=== PATIENT | female | born 1975 | race Two or more races ===

== ENCOUNTER 2024-08-11 16:05 | Emergency (ER) | payer OTHER ==
[~2024-08-11] VITALS: Ht 149.9 cm; Wt 59.0 kg
[2024-08-11] MEDS ORDERED: LOSARTAN POTAS100 MG PO (16:48)
[2024-08-11] MEDS ORDERED: ONDANSETRON HCL 2 MG/ML VIAL IV ONE (17:15)
[2024-08-11] MEDS ORDERED: DIPHENHYDRAMINE HCL 50 MG/ML VIAL 1ML IV ONE (17:15)
[2024-08-11] MEDS ORDERED: METHYLPREDNISOLONE SOD SUCC 40 MG VIAL IV ONE (17:15)
[2024-08-11] MEDS ORDERED: 0.9 % SODIUM CHLORIDE 1,000 ML IV ONE (17:15)
[2024-08-11] MEDS ORDERED: FAMOtidine 10 MG/ML (4ML VIAL) IV ONE (17:15)
[2024-08-11] MEDS ORDERED: DIPHENHYDRAMINE HCL 50 MG/ML VIAL 1ML ONE (17:18)
[2024-08-11] MEDS ORDERED: FAMOTIDINE/PF 20 MG/2 ML VIAL ONE (17:19)
[2024-08-11] MEDS ORDERED: ONDANSETRON HCL 2 MG/ML VIAL ONE (17:19)
[2024-08-11] MEDS ORDERED: METHYLPREDNISOLONE SOD SUCC 40 MG VIAL ONE (17:19)
[2024-08-11 18:00] LABS: HEMATOCRIT 43.8 % (36.0-45.00); HEMOGLOBIN 15.1 g/dL (12.0-15.00); MEAN CELL VOLUME 87.3 fL (80.00-100.00); MEAN CORPUSCULAR HEMOGLOBIN 30.1 pg (27.00-32.0); MEAN CORPUSCULAR HGB CONC 34.4 g/dl (32.0-36.0); PLATELET COUNT 243 K/uL (150-450); RED BLOOD COUNT 5.02 M/uL (4.00-6.00); RED CELL DISTRIBUTION WIDTH 12.8 % (11.5-14.5)
[2024-08-11 18:11] LABS: URINE APPEARANCE Clear; URINE BILIRRUBIN Negative (NEGATIVE); URINE BLOOD Negative; URINE COLOR Yellow; URINE GLUCOSE Negative (NEGATIVE); URINE LEUKOCYTE Small; URINE NITRATE Negative; URINE PROTEIN Negative (NEGATIVE)
[2024-08-11 18:12] LABS: URINE BACTERIA 195.8 uL (0.0-1933); URINE EPITHELIAL CELLS 21.8 uL (0.0-38.8); URINE RBC 5.4 uL (0.0-20.8)
[2024-08-11 18:18] LABS: URINE CAST 0.14 uL (0.0-1.40); URINE KETONE 40 (NEGATIVE)
[2024-08-11 18:33] LABS: ALBUMIN 4.4 gm/dL (3.4-5.0); BILIRUBIN TOTAL 0.53 mg/dL (0.3-1.2); CALCIUM 10.2 mg/dL (8.5-10.1); CREATININE SERUM 0.75 mg/dL (0.55-1.02); GFR 82.48; GLOBULINA 4.5 G/DL (2.4-3.5); INR 1.21; PARTIAL THROMBOPLASTIN TIME 28.6 SECONDS (22.0-34.0); POTASSIUM 4.1 mEq/L (3.5-5.1); TOTAL PROTEIN 8.9 gm/dL (6.4-8.2)
[2024-08-11] MEDS ORDERED: BUTALB/ACETAMINOPHEN/CAFFEINE 1 TAB TABLET PO ONE ×2 (20:25→20:30)
[2024-08-11] MEDS ORDERED: BACTRIM DS TAB1 EACH PO (22:48)
[2024-08-11] MEDS ORDERED: PEPCID AC20 MG PO (22:48)
[2024-08-11] MEDS ORDERED: ZOFRAN8 MG PO (22:48)
== END 2024-08-11 23:52 | disposition home or self-care (01) ==
LOC: ER 16:07
PROVIDERS: General Practice
DX: R10.13 Epigastric pain (principal); I10 Essential (primary) hypertension; Z91.013 Allergy to seafood; Z20.822 Contact with and (suspected) exposure to COVID-19